=== PATIENT | female | born 1985 | race African-American/Black ===

== ENCOUNTER 2017-12-14 08:22 | Emergency (ER) | payer OTHER ==
[~2017-12-14] VITALS: Ht 162.6 cm; Wt 74.8 kg
[2017-12-14 08:29] VITALS: BP 121/82
== END 2017-12-14 09:11 | disposition home or self-care (01) ==
LOC: ER 08:22
DX: R13.10 Dysphagia, unspecified (principal)

== ENCOUNTER 2021-06-14 16:06 | Emergency (ER) | payer OTHER ==
[~2021-06-14] VITALS: Ht 172.7 cm; Wt 49.9 kg
[2021-06-14] MEDS ORDERED: CEPH-509 PO (17:44)
[2021-06-14] MEDS ORDERED: NAPR500T31 PO (17:44)
[2021-06-14] MEDS ORDERED: IBUPROFEN 600 MG TAB PO ONE (17:45)
[2021-06-14 18:02] VITALS: BP 112/73
== END 2021-06-14 18:08 | disposition home or self-care (01) ==
LOC: EDBD 16:06 → ER 16:12
DX: S63.92XA Sprain of unspecified part of left wrist and hand, initial encounter (principal); S63.91XA Sprain of unspecified part of right wrist and hand, initial encounter; S01.531A Puncture wound without foreign body of lip, initial encounter; W19.XXXA Unspecified fall, initial encounter; Y93.89 Activity, other specified; Y92.89 Other specified places as the place of occurrence of the external cause; Y99.8 Other external cause status
CPT/HCPCS: 73130